=== PATIENT | male | born 1945 | race Caucasian/White ===

== ENCOUNTER 2023-05-26 18:37 | Observation (INO) | payer MEDICARE, OTHER ==
[2023-05-26 19:02] LABS: #Basophils 0.1 thou/uL (0.0-0.2); #Eosinphils 0.2 thou/uL (0.0-0.7); #Neutrophils 4.3 thou/uL (1.40-6.50); %Basophils 0.6 % (0.0-1.0); %Eosinophils 2.9 % (0.0-10.0); %Lymphocytes 33.4 % (21.0-51.0); %Monocytes 12.1 % (0.0-10.0); %Neutrophils 50.9 % (42.0-75.0); Hematocrit 47.5 % (42.0-52.0); Hemoglobin 16.4 g/dL (14.0-18.0); Mean Corpuscular HGB CONC 34.5 g/dL (32.0-36.0); Mean Corpuscular Hemoglobin 32.3 pg (27.0-31.0); Mean Corpuscular Volume 93.7 fl (78.0-98.0); Mean Platelet Volume 9.7 fL (7.4-10.4); Platelet Count 201 10x3/uL (130-400); RBC Distribution Width 13.2 % (11.5-14.5); Red Blood Cell (RBC) Count 5.07 mill/uL (4.70-6.10); White Blood Cell (WBC) Count 8.4 10x3/uL (4.8-10.8)
[2023-05-26 19:41] LABS: ALT (SGPT) 40 U/L (8-55); AST (SGOT) 38 U/L (5-34); Albumin 4.4 g/dL (3.4-4.8); Alkaline Phosphatase 68 U/L (40-110); Anion Gap 15 mmol/L (10-20); BUN (Urea Nitrogen) 25 mg/dL (8.4-25.7); Bilirubin, Total 0.6 mg/dL (0.2-1.2); Calc. Creatinine Clearance 0 mL/min (70-130); Calcium 9.7 mg/dL (7.8-10.44); Carbon Dioxide 25 mmol/L (23-31); Chloride 106 mmol/L (98-107); Estimated GFR 62; Globulin 2.9 g/dL (2.4-3.5); Glucose 82 mg/dL (83-110); Potassium 4.4 mmol/L (3.5-5.1); Protein, Total 7.3 g/dL (5.8-8.1); Sodium 142 mmol/L (136-145)
[2023-05-26 19:45] LABS: Troponin I 0.054 ng/mL (< 0.028)
[2023-05-26] MEDS ORDERED: Aspirin Chewable 81 MG TAB ONE (19:57)
[2023-05-26] MEDS ORDERED: Acetaminophen 325 MG TAB PO PRN (20:50)
[2023-05-26] MEDS ORDERED: Ondansetron ODT 4 MG TAB PO PRN (20:50)
[2023-05-26] MEDS ORDERED: Acetaminophen 650 MG Suppository PR PRN (20:50)
[2023-05-26] MEDS ORDERED: Ondansetron PF 4 MG/2 ML Vial IVP PRN (20:50)
[2023-05-26] MEDS ORDERED: Atorvastatin Calcium 20 MG TAB PO SCH (21:00)
[2023-05-26] MEDS ORDERED: Dronedarone HCl 400 MG TAB PO SCH (21:15)
[2023-05-26] MEDS: Apixaban 5 MG TAB PO SCH (22:59)
[2023-05-26 23:06] VITALS: BMI 33.8
[2023-05-27 01:32] LABS: Troponin I 0.068 ng/mL (< 0.028)
[2023-05-27 04:27] LABS: #Eosinphils 0.3 thou/uL (0.0-0.7); #Monocytes 0.8 thou/uL (0.11-0.59); #Neutrophils 2.8 thou/uL (1.40-6.50); %Basophils 0.5 % (0.0-1.0); %Eosinophils 4.6 % (0.0-10.0); %Lymphocytes 38.3 % (21.0-51.0); %Monocytes 12.6 % (0.0-10.0); %Neutrophils 43.8 % (42.0-75.0); Hematocrit 43.5 % (42.0-52.0); Mean Corpuscular HGB CONC 34.5 g/dL (32.0-36.0); Mean Corpuscular Hemoglobin 32.3 pg (27.0-31.0); Mean Corpuscular Volume 93.5 fl (78.0-98.0); Mean Platelet Volume 9.7 fL (7.4-10.4); Platelet Count 176 10x3/uL (130-400); RBC Distribution Width 13.2 % (11.5-14.5); Red Blood Cell (RBC) Count 4.65 mill/uL (4.70-6.10); White Blood Cell (WBC) Count 6.3 10x3/uL (4.8-10.8)
[2023-05-27 04:54] LABS: Anion Gap 9 mmol/L (10-20); BUN (Urea Nitrogen) 23 mg/dL (8.4-25.7); Calc. Creatinine Clearance 103 mL/min (70-130); Carbon Dioxide 25 mmol/L (23-31); Chloride 109 mmol/L (98-107); Estimated GFR 86; Glucose 84 mg/dL (83-110); Potassium 3.7 mmol/L (3.5-5.1); Sodium 139 mmol/L (136-145)
[2023-05-27] MEDS ORDERED: Dronedarone HCl 400 MG TAB PO SCH (08:00)
[2023-05-27] MEDS: Apixaban 5 MG TAB PO SCH (09:04)
[2023-05-27] MEDS ORDERED: Doxycycline 25 MG/5 ML Oral Suspension PO SCH (11:45)
[2023-05-27 15:05] VITALS: BP 165/77; TEMP 97.9
== END 2023-05-27 13:35 | disposition home or self-care (01) ==
LOC: ERS 18:37 → 2NO 20:38
PROVIDERS: ADMIT Student in an Organized Health Care Education/Training Program; ATTEND Hospitalist
DX: R07.9 Chest pain, unspecified (principal); I82.409 Acute embolism and thrombosis of unspecified deep veins of unspecified lower extremity; I44.7 Left bundle-branch block, unspecified; D68.51 Activated protein C resistance; I48.91 Unspecified atrial fibrillation; E78.00 Pure hypercholesterolemia, unspecified; I25.10 Atherosclerotic heart disease of native coronary artery without angina pectoris; Z79.01 Long term (current) use of anticoagulants; Z79.899 Other long term (current) drug therapy; Z86.718 Personal history of other venous thrombosis and embolism
CPT/HCPCS: 36415; 71045; 80048; 80053; 83880; 84484; 85025; 93005; G0378

== ENCOUNTER 2024-02-27 16:00 | Outpatient (CLI) | payer MEDICARE, OTHER | END 2024-02-27 16:01 | disposition home or self-care (01) | LOC: SLEEPLAB 16:00 | PROVIDERS: ATTEND Physician Assistant | DX: G47.33 Obstructive sleep apnea (adult) (pediatric) (principal); R53.83 Other fatigue; E66.9 Obesity, unspecified; I25.10 Atherosclerotic heart disease of native coronary artery without angina pectoris; G47.00 Insomnia, unspecified; R06.83 Snoring; Z68.34 Body mass index [BMI] 34.0-34.9, adult | CPT/HCPCS: 95800 ==

== ENCOUNTER 2024-03-17 14:50 | Outpatient (CLI) | payer MEDICARE | END 2024-03-17 14:51 | disposition home or self-care (01) | LOC: BICRAD 14:50 | PROVIDERS: ATTEND Nurse Practitioner Family | DX: S70.01XA Contusion of right hip, initial encounter (principal); S70.11XA Contusion of right thigh, initial encounter; T14.8XXA Other injury of unspecified body region, initial encounter; R58 Hemorrhage, not elsewhere classified; W19.XXXA Unspecified fall, initial encounter ==

== ENCOUNTER 2024-03-26 15:49 | Outpatient (CLI) | payer MEDICARE, OTHER | END 2024-03-26 15:50 | disposition home or self-care (01) | LOC: ULT 15:49 | PROVIDERS: ATTEND Nurse Practitioner Family | DX: T14.8XXA Other injury of unspecified body region, initial encounter (principal) | CPT/HCPCS: 76882 ==

== ENCOUNTER 2024-05-16 21:14 | Inpatient (IN) | payer MEDICARE, OTHER ==
[2024-05-16] MEDS ORDERED: Aspirin Chewable 81 MG TAB ONE (21:40)
[2024-05-16 21:51] LABS: #Basophils 0.04 10x3/uL (0.0-0.2); %Basophils 0.5 % (0.0-1.0); %Eosinophils 2.1 % (0.0-10.0); %Lymphocytes 40.9 % (21.0-51.0); %Neutrophils 42.4 % (42.0-75.0); Hematocrit 47.1 % (42.0-52.0); Hemoglobin 16.4 g/dL (14.0-18.0); Mean Corpuscular HGB CONC 34.8 g/dL (32.0-36.0); Mean Corpuscular Hemoglobin 31.5 pg (27.0-31.0); Mean Corpuscular Volume 90.4 fL (78.0-98.0); Mean Platelet Volume 9.4 fL (7.4-10.4); Platelet Count 202 10x3/uL (130-400); RBC Distribution Width 12.6 % (11.5-14.5); Red Blood Cell (RBC) Count 5.21 mill/uL (4.70-6.10)
[2024-05-16 22:07] LABS: ALT (SGPT) 43 U/L (8-55); AST (SGOT) 40 U/L (5-34); Albumin 4.1 g/dL (3.4-4.8); Alkaline Phosphatase 60 U/L (40-110); Anion Gap 13 mmol/L (10-20); BUN (Urea Nitrogen) 27 mg/dL (8.4-25.7); Bilirubin, Total 0.6 mg/dL (0.2-1.2); Calc. Creatinine Clearance 0 mL/min (70-130); Calcium 9.7 mg/dL (7.8-10.44); Carbon Dioxide 25 mmol/L (23-31); Chloride 109 mmol/L (98-107); Estimated GFR 66; Globulin 3.2 g/dL (2.4-3.5); Glucose 85 mg/dL (83-110); Lipase 26 U/L (8-78); Potassium 4.3 mmol/L (3.5-5.1); Protein, Total 7.3 g/dL (5.8-8.1); Sodium 143 mmol/L (136-145)
[2024-05-16 22:12] LABS: Troponin I 0.038 ng/mL (< 0.028)
[2024-05-16] MEDS ORDERED: traMADol HCl 50 MG TAB PO PRN (23:58)
[2024-05-16] MEDS ORDERED: Ondansetron PF 4 MG/2 ML Vial IVP PRN (23:58)
[2024-05-17 01:20] LABS: Troponin I 0.043 ng/mL (< 0.028)
[2024-05-17 02:00] VITALS: BMI 33.0
[2024-05-17 03:54] LABS: #Basophils 0.04 10x3/uL (0.0-0.2); %Basophils 0.5 % (0.0-1.0); %Eosinophils 3.4 % (0.0-10.0); %Lymphocytes 40.5 % (21.0-51.0); %Neutrophils 41.5 % (42.0-75.0); Hematocrit 45.3 % (42.0-52.0); Hemoglobin 15.5 g/dL (14.0-18.0); Mean Corpuscular HGB CONC 34.2 g/dL (32.0-36.0); Mean Corpuscular Hemoglobin 31.7 pg (27.0-31.0); Mean Corpuscular Volume 92.6 fL (78.0-98.0); Mean Platelet Volume 9.5 fL (7.4-10.4); Platelet Count 195 10x3/uL (130-400); RBC Distribution Width 12.7 % (11.5-14.5); Red Blood Cell (RBC) Count 4.89 mill/uL (4.70-6.10)
[2024-05-17 04:07] LABS: Anion Gap 12 mmol/L (10-20); BUN (Urea Nitrogen) 26 mg/dL (8.4-25.7); Calc. Creatinine Clearance 82 mL/min (70-130); Calcium 9.3 mg/dL (7.8-10.44); Carbon Dioxide 24 mmol/L (23-31); Chloride 110 mmol/L (98-107); Estimated GFR 68; Glucose 90 mg/dL (83-110); Potassium 3.9 mmol/L (3.5-5.1); Sodium 142 mmol/L (136-145)
[2024-05-17 04:48] LABS: Troponin I 0.041 ng/mL (< 0.028)
[2024-05-17] MEDS ORDERED: Loratadine 10 MG TAB PO PRN ×2 (09:00→09:43)
[2024-05-17] MEDS: Apixaban 5 MG TAB PO SCH (09:00)
[2024-05-17] MEDS: Rosuvastatin 10 MG TAB PO SCH (20:20)
[2024-05-17] MEDS: Enoxaparin 100 MG (1 mL) SYRINGE SC SCH (20:20)
[2024-05-17] MEDS: Acetaminophen 325 MG TAB PO PRN (20:20)
[2024-05-17] MEDS ORDERED: NIACIN 750 MG PO SCH (21:00)
[2024-05-17] MEDS ORDERED: Atorvastatin Calcium 20 MG TAB PO SCH (21:00)
[2024-05-18] MEDS: [UNRECOGNIZED DRUG - OTHER] PO SCH (10:18)
[2024-05-18] MEDS: PHYTONADIONE PO SCH (10:19)
[2024-05-20] MEDS ORDERED: fentaNYL 50 mcg/mL 1 mL Vial ONE ×3 (06:22→08:58)
[2024-05-20] MEDS ORDERED: CEFAZOLIN 1 GM VIAL ONE (06:23)
[2024-05-20] MEDS ORDERED: Midazolam HCl 2 mg/2 ml Vial ONE (06:23)
[2024-05-20] MEDS ORDERED: CEFAZOLIN 2 GM VIAL ONE (06:23)
[2024-05-20] MEDS ORDERED: Gentamicin 80 MG/2 ML VIAL ONE (06:23)
[2024-05-20] MEDS ORDERED: Lidocaine 1% (PF) 30 ML VIAL ONE (08:12)
[2024-05-20] MEDS ORDERED: Atropine Sulfate 1 mg/10 ml Syringe ONE (08:33)
[2024-05-20] MEDS ORDERED: Acetaminophen/Codeine 30-300mg Tablet PO PRN (09:33)
[2024-05-20 12:44] VITALS: BP 160/76; TEMP 97.9
[2024-05-20] MEDS ORDERED: Cephalexin 250 MG CAP PO SCH (21:00)
== END 2024-05-20 15:16 | disposition home or self-care (01) | DRG 242 ==
LOC: ERS 21:14 → 2SW 23:28 → OBSVTOIN 05-17 16:58
PROVIDERS: ADMIT Student in an Organized Health Care Education/Training Program; ATTEND Hospitalist
PROC: 0JH606Z Insertion of Pacemaker, Dual Chamber into Chest Subcutaneous Tissue and Fascia, Open Approach (ICD-10-PCS; principal; 2024-05-20)
PROC: 02H63JZ Insertion of Pacemaker Lead into Right Atrium, Percutaneous Approach (ICD-10-PCS; 2024-05-20)
PROC: 02HK3JZ Insertion of Pacemaker Lead into Right Ventricle, Percutaneous Approach (ICD-10-PCS; 2024-05-20)
DX: R00.1 Bradycardia, unspecified (principal); I21.A1 Myocardial infarction type 2; D68.51 Activated protein C resistance; I48.0 Paroxysmal atrial fibrillation; G47.33 Obstructive sleep apnea (adult) (pediatric); E78.5 Hyperlipidemia, unspecified; I44.7 Left bundle-branch block, unspecified; Z86.718 Personal history of other venous thrombosis and embolism; Z79.899 Other long term (current) drug therapy; Z79.01 Long term (current) use of anticoagulants; Z85.828 Personal history of other malignant neoplasm of skin; I49.5 Sick sinus syndrome
CPT/HCPCS: 33208; 36415; 71045; 80048; 80053; 83690; 83880; 84484; 85025; 93005; 93010; 93306; 99152; 99153; C1785; C1898; G0378; J0461; J0690; J1580; J1650; J2001; J2250; J3010

== ENCOUNTER 2025-07-03 11:38 | Outpatient (CLI) | payer MEDICARE, OTHER | END 2025-07-03 11:39 | disposition home or self-care (01) | LOC: RAD 11:38 | PROVIDERS: ATTEND Nurse Practitioner Family | DX: M54.42 Lumbago with sciatica, left side (principal); Z95.0 Presence of cardiac pacemaker | CPT/HCPCS: 71046 ==